=== PATIENT | male | born 1970 | race Caucasian/White ===

== ENCOUNTER → 2017-09-25 | Outpatient (CLI) | payer OTHER ==
[~2017-09-25] MED LIST: CONTRAST GIVEN MC
[2017-09-25] MEDS: IOHEXOL 300 MG/ML 100ML VIAL. IV (07:15)
[2017-09-25] MEDS: IOHEXOL 240 MG/ML 50ML VIAL. PO (07:15)
[2017-09-25 07:49] LABS: GFR 71.8
[2017-09-25 07:49] LABS: CREATININE 1.1 mg/dL (0.7-1.3)
== END | disposition home or self-care (01) ==
LOC: CT 07:04
DX: K59.00 Constipation, unspecified (principal); R10.9 Unspecified abdominal pain
CPT/HCPCS: 36415; 74177; 82565; Q9966; Q9967

== ENCOUNTER → 2017-10-19 | Outpatient (CLI) | payer OTHER ==
[2017-10-19] MEDS: GADOBUTROL 10 MMOL/10 ML VIAL IV (11:30)
== END | disposition home or self-care (01) ==
LOC: MRI 10:40
DX: K76.9 Liver disease, unspecified (principal); D18.03 Hemangioma of intra-abdominal structures
CPT/HCPCS: 74183; A9585